=== PATIENT | female | born 1980 | race Two or more races ===

== ENCOUNTER 2019-12-16 08:20 | Emergency (ER) | payer OTHER ==
[~2019-12-16] VITALS: Ht 154.9 cm; Wt 59.9 kg
[2019-12-16] MEDS ORDERED: XYZAL5 MG PO (09:51)
== END 2019-12-16 09:57 | disposition home or self-care (01) ==
LOC: ER 08:20
DX: R51 Headache (principal); L50.8 Other urticaria

== ENCOUNTER 2020-02-25 08:40 | Emergency (ER) | payer OTHER ==
[~2020-02-25] VITALS: Ht 154.9 cm; Wt 61.2 kg
[~2020-02-25 08:40] MED LIST: XYZAL5 MG PO
[2020-02-25] MEDS ORDERED: NORFLEX100MG PO (14:42)
[2020-02-25] MEDS ORDERED: KETO10TA2 PO (14:42)
== END 2020-02-25 15:50 | disposition home or self-care (01) ==
LOC: ER 08:40
DX: U07.1 COVID-19 (principal); R51.9 Headache, unspecified; M54.5 Low back pain; M54.2 Cervicalgia

== ENCOUNTER 2020-06-12 15:52 | Emergency (ER) | payer OTHER ==
[~2020-06-12] VITALS: Ht 154.9 cm; Wt 59.0 kg
[~2020-06-12 15:52] MED LIST changes: +KETO10TA2 PO; +NORFLEX100MG PO
== END 2020-06-12 20:22 | disposition home or self-care (01) ==
LOC: ER 15:52
DX: K57.32 Diverticulitis of large intestine without perforation or abscess without bleeding (principal)

== ENCOUNTER 2020-06-16 19:06 | Emergency (ER) | payer OTHER ==
[~2020-06-16] VITALS: Ht 154.9 cm; Wt 59.0 kg
[2020-06-16] MEDS ORDERED: PERCOCET 5-3251 EACH PO (23:20)
[2020-06-16] MEDS ORDERED: TAMS0.4C PO (23:20)
== END 2020-06-16 23:21 | disposition home or self-care (01) ==
LOC: ER 19:06
DX: N20.0 Calculus of kidney (principal); K57.90 Diverticulosis of intestine, part unspecified, without perforation or abscess without bleeding; R10.31 Right lower quadrant pain